=== PATIENT | female | born 1970 | race Caucasian/White ===

== ENCOUNTER 2017-04-07 14:10 | Emergency (ER) | payer BC ==
[~2017-04-07 14:10] MED LIST: MUCINEX COLD-F177 M1 PO; NO HOME MEDICATION XX; PREDNISONE20 M1 PO; TRAMADOL HCL50 MG PO; VENTOLIN HFA18 G2 PO; ZITHROMAX250 M1 PO
[2017-04-07] MEDS ORDERED: PROGESTERONE100 M1 PO (15:46)
[2017-04-07] MEDS ORDERED: WOMEN'S DAILY1 EAC4 PO (15:46)
[2017-04-07] MEDS ORDERED: VITAMIN B-12250 MC2 PO (15:47)
[2017-04-07] MEDS ORDERED: CYCLOBENZAPRINE10 M1 PO (17:06)
[2017-04-07] MEDS ORDERED: PREDNISONE20 M1 PO (17:07)
[2017-05-16] MEDS ORDERED: IBUPROFEN800 M1 PO (02:35)
[2017-05-16] MEDS ORDERED: NORCO 5/3251 TAB PO (02:35)
== END 2017-04-07 17:20 ==
LOC: EDMED 14:10
DX: M54.17 Radiculopathy, lumbosacral region (principal); F17.200 Nicotine dependence, unspecified, uncomplicated; Z90.89 Acquired absence of other organs; Z98.890 Other specified postprocedural states